=== PATIENT | female | born 1980 | race Caucasian/White ===

== ENCOUNTER 2021-07-08 01:54 | Inpatient (IN) | payer MEDICAID ==
[~2021-07-08] VITALS: Ht 172.7 cm; Wt 154.7 kg
[~2021-07-08 01:54] MED LIST: DOCU-94 OR; HYDR-1421 PO; IRONTAB35; PREN-96 OR
[2021-07-08 02:34] LABS: Basophils # (auto) 0.1 10 ^3/uL (0-0.2); Basophils % (auto) 0.6 % (0.0-2.0); Eosinophils # (auto) 0.2 10 ^3/uL (0-0.8); Eosinophils % (auto) 1.8 % (0.0-7.0); Hematocrit 35.5 % (36.0-46.0); Lymphocytes # (auto) 2.5 10 ^3/uL (0.4-5.4); Lymphocytes % (auto) 27.1 % (10.0-50.0); Mean Corpuscular Hemoglobin 28.4 pg (28.0-32.0); Mean Corpuscular Hgb Conc. 33.7 g/dL (32.0-36.0); Mean Corpuscular Volume 84.3 fL (80.0-100.0); Monocytes # (auto) 0.9 10 ^3/uL (0-1.3); Monocytes % (auto) 9.8 % (0.0-12.0); Neutrophils # (auto) 5.5 10 ^3/uL (1.6-8.6); Neutrophils % (auto) 60.7 % (37.0-80.0); Nucleated Red Blood Cells % 0.1 %; Red Blood Cells 4.21 10^6/uL (4.0-5.20); Red Cell Distribution Width 15.3 % (11.8-14.3); White Blood Cell 9.1 10^3/uL (4.4-10.8)
[2021-07-08 02:54] LABS: Alanine Aminotransferase 22 U/L (13-56); Albumin 3.2 g/dL (3.4-5.0); Anion Gap 6 (5-15); Aspartate Aminotransferase 10 U/L (15-37); BUN/Creatinine Ratio 21.9; Blood Urea Nitrogen 16 mg/dL (7-18); Calcium 8.1 mg/dL (8.5-10.1); Carbon Dioxide 26 mmol/L (21-32); Chloride 107 mmol/L (98-107); GFR African American 114 mL/min; GFR Non-African American 94 mL/min; Glucose 95 mg/dL (74-106); Potassium 3.8 mmol/L (3.5-5.1); Sodium 139 mmol/L (136-145)
[2021-07-08 02:59] LABS: Alkaline Phosphatase 88 U/L (45-117); Bilirubin, Total 0.1 mg/dL (0.2-1.0); Total Protein 7.8 g/dL (6.4-8.2)
[2021-07-08] MEDS ORDERED: ONDANSETRON HCL 4 MG/2 ML VIAL IV PRN ×2 (07:15→11:00)
[2021-07-08] MEDS ORDERED: traMADol HCL 50 MG TAB PO PRN (07:15)
[2021-07-08] MEDS ORDERED: SODIUM CHLORIDE 0.9% 1,000 ML IV ONE (07:15)
[2021-07-08] MEDS ORDERED: MORPHINE SULFATE INJECTION 2 MG/ML SYRG IV PRN ×2 (07:15→11:00)
[2021-07-08] MEDS ORDERED: NITROGLYCERIN 0.4 MG SL TAB SL PRN (07:15)
[2021-07-08] MEDS ORDERED: levoFLOXacin 500MG 100 ML IV SCH (10:00)
[2021-07-08] MEDS ORDERED: ENOXAPARIN SOD 40 MG/0.4 ML SYRINGE SC SCH (10:00)
[2021-07-08] MEDS ORDERED: HYDROcodone-ACET 10/325MG TAB PO PRN (11:00)
[2021-07-08 13:01] VITALS: BP 130/86
[2021-07-08] MEDS ORDERED: CLINDAMYCIN 900MG IV 50 ML IV SCH (14:00)
== END 2021-07-08 14:14 | disposition left against medical advice (07) | DRG 383 ==
LOC: ER 01:56 → TELE 07:07 → CENTRAL 12:33 → TELE-CENTR 12:35 → CENTRAL 12:51
PROVIDERS: ADMIT Internal Medicine; ATTEND Internal Medicine
DX: L03.115 Cellulitis of right lower limb (principal); E88.09 Other disorders of plasma-protein metabolism, not elsewhere classified; E66.01 Morbid (severe) obesity due to excess calories; Z53.29 Procedure and treatment not carried out because of patient's decision for other reasons; Z20.822 Contact with and (suspected) exposure to COVID-19; Z88.1 Allergy status to other antibiotic agents; Z68.43 Body mass index [BMI] 50.0-59.9, adult
CPT/HCPCS: 36415; 71045; 80053; 83880; 84484; 84702; 85025; 85379; 87426; 93005; 93971; 96361; 96365; 96366; 96372; G0378; J1956; J3490

== ENCOUNTER 2021-10-12 14:28 | Inpatient (IN) | payer MEDICAID ==
[~2021-10-12] VITALS: Ht 172.7 cm; Wt 158.0 kg
[2021-10-12] MEDS ORDERED: SODIUM CHLORIDE 0.9% 500 ML IV ONE (14:45)
[2021-10-12] MEDS ORDERED: CLINDAMYCIN 600MG IV 50 ML IV ONE (14:45)
[2021-10-12 16:43] LABS: Basophils # (auto) 0 10 ^3/uL (0-0.2); Eosinophils # (auto) 0.1 10 ^3/uL (0-0.8); Eosinophils % (auto) 1.8 % (0.0-7.0); Hematocrit 27.8 % (36.0-46.0); Lymphocytes # (auto) 1.9 10 ^3/uL (0.4-5.4)
[2021-10-12 16:44] LABS: Basophils % (auto) 0.3 % (0.0-2.0); Hemoglobin 8.7 g/dL (12.2-16.2); Lymphocytes % (auto) 24.7 % (10.0-50.0); Mean Corpuscular Hemoglobin 24.5 pg (28.0-32.0); Mean Corpuscular Hgb Conc. 31.4 g/dL (32.0-36.0); Mean Corpuscular Volume 78.2 fL (80.0-100.0); Monocytes # (auto) 0.8 10 ^3/uL (0-1.3); Monocytes % (auto) 10.6 % (0.0-12.0); Neutrophils # (auto) 4.9 10 ^3/uL (1.6-8.6); Neutrophils % (auto) 62.6 % (37.0-80.0); Red Blood Cells 3.55 10^6/uL (4.0-5.20); Red Cell Distribution Width 15.9 % (11.8-14.3); White Blood Cell 7.9 10^3/uL (4.4-10.8)
[2021-10-12 17:28] LABS: Alanine Aminotransferase 21 U/L (13-56); Albumin 2.8 g/dL (3.4-5.0); Alkaline Phosphatase 82 U/L (45-117); Anion Gap 7 (5-15); Aspartate Aminotransferase 12 U/L (15-37); Bilirubin, Total 0.2 mg/dL (0.2-1.0); Blood Urea Nitrogen 22 mg/dL (7-18); Calcium 7.9 mg/dL (8.5-10.1); Carbon Dioxide 24 mmol/L (21-32); Chloride 109 mmol/L (98-107); GFR African American 92 mL/min; GFR Non-African American 76 mL/min; Glucose 86 mg/dL (74-106); Sodium 140 mmol/L (136-145); Total Protein 7.7 g/dL (6.4-8.2)
[2021-10-12] MEDS ORDERED: ACETAMINOPHEN 325 MG TAB PO PRN (17:30)
[2021-10-12] MEDS ORDERED: NITROGLYCERIN 0.4 MG SL TAB SL PRN (17:30)
[2021-10-12] MEDS ORDERED: HYDROcodone-ACET 5/325MG TAB PO PRN (17:30)
[2021-10-12] MEDS ORDERED: ONDANSETRON HCL 4 MG/2 ML VIAL IV PRN (17:30)
[2021-10-12] MEDS ORDERED: MORPHINE SULFATE INJECTION 2 MG/ML SYRG IV PRN (17:30)
[2021-10-12] MEDS: MORPHINE SULFATE 4 MG/ML SYR/VIAL IV PRN (18:35)
[2021-10-12 20:23] VITALS: BP 145/73
[2021-10-13] MEDS: CLINDAMYCIN 600MG IV 50 ML IV SCH ×4 (00:40→21:37)
[2021-10-13] MEDS: MORPHINE SULFATE 4 MG/ML SYR/VIAL IV PRN ×2 (00:41→22:35)
[2021-10-13 05:15] VITALS: BP 135/53
[2021-10-13 05:56] LABS: Basophils # (auto) 0 10 ^3/uL (0-0.2); Basophils % (auto) 0.3 % (0.0-2.0); Eosinophils # (auto) 0.2 10 ^3/uL (0-0.8); Monocytes # (auto) 0.7 10 ^3/uL (0-1.3); Nucleated Red Blood Cells % 0.1 %
[2021-10-13 06:00] LABS: Eosinophils % (auto) 2.4 % (0.0-7.0); Hematocrit 26.2 % (36.0-46.0); Hemoglobin 8.2 g/dL (12.2-16.2); Mean Corpuscular Hemoglobin 24.6 pg (28.0-32.0); Mean Corpuscular Hgb Conc. 31.3 g/dL (32.0-36.0); Mean Corpuscular Volume 78.8 fL (80.0-100.0); Monocytes % (auto) 10.5 % (0.0-12.0); Neutrophils % (auto) 57.8 % (37.0-80.0); Red Blood Cells 3.33 10^6/uL (4.0-5.20)
[2021-10-13 06:32] LABS: Albumin 2.4 g/dL (3.4-5.0); BUN/Creatinine Ratio 26.4; Calcium 8.1 mg/dL (8.5-10.1)
[2021-10-13 06:52] LABS: Bilirubin, Total 0.2 mg/dL (0.2-1.0); Total Protein 6.1 g/dL (6.4-8.2)
[2021-10-13 08:55] VITALS: BP 133/61
[2021-10-13] MEDS ORDERED: ENOXAPARIN SOD 40 MG/0.4 ML SYRINGE SC SCH (10:00)
[2021-10-13 13:00] VITALS: BP 107/38
[2021-10-13] MEDS: GABAPENTIN 300 MG CAP PO SCH ×2 (14:35→21:37)
[2021-10-13 16:57] VITALS: BP 114/63
[2021-10-13 20:00] VITALS: BP 112/69
[2021-10-13] MEDS: ENOXAPARIN SOD 40 MG/0.4 ML SYRINGE SC SCH (21:37)
[2021-10-13 22:00] VITALS: BP 112/69
[2021-10-14 04:49] VITALS: BP 114/59
[2021-10-14] MEDS: GABAPENTIN 300 MG CAP PO SCH ×3 (05:30→22:10)
[2021-10-14] MEDS: CLINDAMYCIN 600MG IV 50 ML IV SCH ×3 (05:30→22:09)
[2021-10-14 09:00] VITALS: BP 93/50
[2021-10-14] MEDS: ENOXAPARIN SOD 40 MG/0.4 ML SYRINGE SC SCH ×2 (09:06→22:10)
[2021-10-14 12:12] LABS: % Iron Saturation 4.2 % (15-50)
[2021-10-14 12:57] VITALS: BP 119/60
[2021-10-14 17:11] VITALS: BP 120/63
[2021-10-14] MEDS: MORPHINE SULFATE 4 MG/ML SYR/VIAL IV PRN ×2 (18:15→22:12)
[2021-10-14 20:00] VITALS: BP 123/67
[2021-10-14 22:00] VITALS: BP 123/67
[2021-10-15 05:00] VITALS: BP 120/69
[2021-10-15] MEDS: CLINDAMYCIN 600MG IV 50 ML IV SCH ×3 (06:00→09:32)
[2021-10-15] MEDS: GABAPENTIN 300 MG CAP PO SCH ×3 (06:35→21:56)
[2021-10-15 09:00] VITALS: BP 139/96
[2021-10-15] MEDS: ENOXAPARIN SOD 40 MG/0.4 ML SYRINGE SC SCH ×2 (09:32→21:56)
[2021-10-15 13:00] VITALS: BP 142/84
[2021-10-15] MEDS: MORPHINE SULFATE 4 MG/ML SYR/VIAL IV PRN ×2 (14:59→21:58)
[2021-10-15 17:00] VITALS: BP 144/57
[2021-10-15] MEDS ORDERED: VANCOMYCIN 1GM/250ML 250 ML IV ONE (18:15)
[2021-10-15] MEDS ORDERED: VANCOMYCIN PER PHARMACY 0 MG IV SCH (20:00)
[2021-10-15 20:11] LABS: Hematocrit 28.4 % (36.0-46.0); Lymphocytes # (auto) 2.4 10 ^3/uL (0.4-5.4); Monocytes # (auto) 0.8 10 ^3/uL (0-1.3); Neutrophils # (auto) 4.5 10 ^3/uL (1.6-8.6)
[2021-10-15 20:13] LABS: Basophils # (auto) 0 10 ^3/uL (0-0.2); Basophils % (auto) 0.3 % (0.0-2.0); Eosinophils # (auto) 0.2 10 ^3/uL (0-0.8); Eosinophils % (auto) 2.6 % (0.0-7.0); Lymphocytes % (auto) 30.2 % (10.0-50.0); Mean Corpuscular Hemoglobin 24.5 pg (28.0-32.0); Mean Corpuscular Hgb Conc. 31.6 g/dL (32.0-36.0); Mean Corpuscular Volume 77.5 fL (80.0-100.0); Monocytes % (auto) 10.3 % (0.0-12.0); Neutrophils % (auto) 56.6 % (37.0-80.0); Red Blood Cells 3.66 10^6/uL (4.0-5.20); Red Cell Distribution Width 16.1 % (11.8-14.3)
[2021-10-15 22:00] VITALS: BP 114/76
[2021-10-16] MEDS: VANCOMYCIN 1GM/250ML 250 ML IV SCH ×3 (01:25→15:49)
[2021-10-16 05:00] VITALS: BP 119/69
[2021-10-16] MEDS: GABAPENTIN 300 MG CAP PO SCH ×2 (06:28→14:00)
[2021-10-16 09:00] VITALS: BP 116/72
[2021-10-16 12:54] VITALS: BP 126/64
[2021-10-16] MEDS: ENOXAPARIN SOD 40 MG/0.4 ML SYRINGE SC SCH (12:56)
== END 2021-10-16 17:07 | disposition home health service (06) | DRG 383 ==
LOC: ER 14:28 → WEST WING 17:27
PROVIDERS: ADMIT Internal Medicine; ATTEND Internal Medicine
DX: L03.115 Cellulitis of right lower limb (principal); E44.0 Moderate protein-calorie malnutrition; D50.9 Iron deficiency anemia, unspecified; E66.01 Morbid (severe) obesity due to excess calories; G35 Multiple sclerosis; G62.9 Polyneuropathy, unspecified; Z20.822 Contact with and (suspected) exposure to COVID-19; Z88.1 Allergy status to other antibiotic agents; Z82.0 Family history of epilepsy and other diseases of the nervous system; Z98.891 History of uterine scar from previous surgery; Z88.8 Allergy status to other drugs, medicaments and biological substances; Z68.43 Body mass index [BMI] 50.0-59.9, adult
CPT/HCPCS: 36415; 73700; 80053; 80202; 82565; 83540; 83550; 83605; 85025; 85652; 87040; 87426; 93005; 93970; 93971; 96365; 96366; G0378; J3490